=== PATIENT | male | born 2000 | race Caucasian/White ===

== ENCOUNTER 2019-03-07 22:13 | Emergency (ER) | payer OTHER ==
[~2019-03-07] VITALS: Ht 183.5 cm; Wt 65.9 kg
[2019-03-07 22:30] VITALS: BP 133/69
--- NOTE | 2019-03-07 22:43 | NUR ---
BLOOD DRAW FOR NURSE EXPOSED TO PT'S BLOOD
--- NOTE | 2019-03-07 23:18 | NUR ---
VERBAL ORDER FOR EXPOSURE PANEL FROM ABIODUN CAVAZOS.
== END 2019-03-07 22:43 ==
LOC: ER 22:14 → EDSEX 22:14 → ER 22:43
DX: Z00.00 Encounter for general adult medical examination without abnormal findings (principal)
CPT/HCPCS: 36415; 86703; 86706; 86803; 87340; 99283